=== PATIENT | female | born 1960 | race Caucasian/White ===

== ENCOUNTER 2016-09-10 20:34 | Emergency (ER) | payer OTHER ==
[~2016-09-10 20:34] MED LIST: ADVIL200 M1 PO; ASPIRIN81 M1 PO; ATORVASTATIN CA20 MG PO; CARDIZEM C2 PO; CARDIZEM LA360 MG PO; CEFUROXIME AXE250 MG PO; COUMADIN5 MG PO; FUROSEMIDE20 MG PO; LEVEMIR FL100 UNIT/M SC; LISINOPRIL10 MG PO; LOPRESSOR25 MG PO; LYRICA25 MG PO; MAGNESIUM400 M1 PO; NORCO1 TA1 PO; NOVOLOG PE100 UNITS/ SC; WARFARIN SODIUM5 MG PO
--- NOTE | 2016-09-10 22:18 | DIAGNOSTIC IMAGING REPORT ---
PROCEDURE: XR CHEST 2 VIEW INDICATION: SYNCOPE TECHNIQUE: PA and lateral views. COMPARISON: None. FINDINGS: Lungs are clear. Heart and mediastinum are normal. There are mild degenerative changes of the thoracic spine. IMPRESSION: 1. Negative chest.
--- NOTE | 2016-09-10 22:23 | DIAGNOSTIC IMAGING REPORT ---
PROCEDURE: CT HEAD WITHOUT CONTRAST INDICATION: FALL TECHNIQUE: Noncontrast axial images with sagittal and coronal reformations. COMPARISON: None. FINDINGS: There are a few areas of low density in the white matter of the cerebral hemispheres. Brain and ventricles are otherwise normal. No evidence of an acute process or hemorrhage. Sinuses and mastoids are normal. IMPRESSION: 1. There are a few areas of low density in the white matter. Findings suggest old small vessel disease (e.g., atherosclerosis, vasculitis). MRI brain without with contrast is recommended to further evaluate (after the patient's acute illness). 2. Otherwise negative head CT. No evidence of acute process. 3. Findings discussed with Dr. Sixto Corona at [address] scans at this facility use dose modulation, iterative reconstruction, and/or weight-based dosing when appropriate to reduce radiation dose to as low as reasonably achievable.
--- NOTE | 2016-09-11 00:45 | ED NURSING NOTES ---
Clinical Report - Nurses [facility] [address] [place] [address] 09/10/2016 20:34 Patient: YAMILETH MANUEL TRIAGE Triage time 20:36 Sep 10 2016. Acuity: LEVEL 2. Chief Complaint: (Syncope, UTI symtoms). ( FAST exam negative). SEPSIS SCREEN: Sepsis Screen: negative. Negative (no infection suspected/documented). JUANITA COMA SCORE: Juanita Coma Scale: 15- eyes open spontaneously (4); best verbal response- oriented x 4 (5); best motor response- obeys commands (6). --20:45 Carley Albert 20:36 09/10/16. BP: 103/65. HR: 70. RR: 20. O2 saturation: 100% on room air. Temp: unable to obtain. Pain level now: 0/10. Additional comments: Reading 90.0 F will reassess after patient is warmed . --20:45 Carley Albert. Weight: 91.6 kg stated. Height/Length: 66 inches Per Patient. BMI: 32.6. --20:42 Carley Albert. Medications Align Oral. Atorvastatin Calcium Oral 20 mg, at bedtime. --20:40 Carley Albert Diltiazem HCl Oral (Tablet 120 mg) 1 tablet, daily. Diltiazem HCl Oral 240 mg, daily. Levimir insulin 40 units at hs daily. Lisinopril Oral 10 mg, daily. Lyrica Oral (Capsule 75 mg) 1 capsule, BID. Magnesium Oral. NovoLOG Subcutaneous 15 units, before meals. Potassium Chloride ER Oral (Capsule Extended Release 10 meq) 1 capsule. Vitamin D Oral. --20:40 Carley Albert Warfarin Sodium Oral 7.5 mg, daily. --20:40 Carley Albert. Medication/allergy information source: the patient and EMS. --20:45 Carley Albert. Allergies Adhesive Tape. Fentanyl. --20:40 Carley Albert Bactrim. --20:40 Carley Albert Sulfa Antibiotics. --20:40 Carley Albert Vancomycin. --20:40 Carley Albert. History Arrived by EMS. Historian: patient. Unaccompanied. This started today. ( Patient states she has been feeling "unwell" since yesterday. She states today she felt worse, she states she thought her sugar was low, she went to the kitchen to get juice and doesn't remember anything after.). 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 EMS treatment BAND SCROLL SAW OPERATOR verbally communicated. BP: 120 / 100. HR: 70. O2 saturation: 98 % room air. ( Blood sugar 136 mg/dl). PAST MEDICAL HX: The patient has had a hysterectomy. SOCIAL HX: Never smoker. No alcohol use or drug use. No infectious disease exposure. ABUSE ASSESSMENT: No report of abuse. NUTRITIONAL RISK ASSESSMENT: The nutritional risk assessment revealed no deficiencies. FUNCTIONAL ASSESSMENT: Functional assessment: no impairments noted. LEARNING NEEDS ASSESSMENT: The learning needs assessment revealed no barriers. FALL RISK ASSESSMENT: Fall risk assessment completed. Risk factors identified include dizziness and patient medications and history of fall and fainting. Fall interventions initiated. Call light in reach of patient. Instructed not to get up without assistance. SKIN INTEGRITY ASSESSMENT: Skin integrity risk assessment completed. No skin integrity risk identified. --20:45 Carley Albert. PROBLEMS: Vomiting. Abdominal Pain. Infectious Mononucleosis. Gallstone(s). Abscess. MRSA Infection. Chronic Hepatitis (undifferentiated). Liver Disease. Atrial Fibrillation. Anemia. Diabetes Mellitus. --20:41 Carley Albert. ADDITIONAL SURGERIES: Gallbladder Surgery. Retro rectal tumor removal. --20:41 Carley Albert Lithotripsy. --20:45 Carley Albert. Interventions ID band on patient. To treatment room. --20:45 Carley Albert. PHYSICAL ASSESSMENT To room via stretcher. Patient gowned. GENERAL / NEURO / PSYCH: Alert. Oriented X 4. Appears anxious. HEENT: Pupils equal, round and reactive to light. No facial asymmetry noted. RESPIRATORY: Respirations not labored. CVS: Normal sinus rhythm noted. GI / : ( Patient reports pressure in her lower abdomen, states "its like I have to pee"). Abdomen soft and nontender. SKIN: Skin is diaphoretic. ( Skin is cool to the touch). --20:46 BetyIsra prietonah. NURSING PROGRESS NOTES child care centre director, pulse oximeter and NIBP monitor placed on patient; monitor alarms on. Patient gowned. Warming measures: blanket applied. Reassurance given to the patient. Two patient identifiers checked. Call light placed in reach. Side rails up x 1. Bed placed in lowest position. Brakes of bed on. Patient ready for evaluation- chart flagged. --20:47 BetyIsra prietonah 20:50 09/10/2016 Site #1 started via IV in the left antecubital space with an 20g angiocath, with aseptic technique and good blood return; one attempt. Blood drawn: rainbow set. Labeled in the presence of the patient and sent to the lab. Saline lock flushed with 10 mL saline. --20:50 Bety, Carley 20:57. EKG was performed by a tech and shown to the ED physician. --21:00 Celia Weber, ER Tech1 Telemetry strip posted to chart. --21:01 Celia Weber, ER Tech1 8 fr in/out catheterization. Reason for indwelling catheter: retention. During procedure hand hygiene observed and sterile equipment and aseptic technique used. Return of greater than 1000 mL yellow-colored cloudy urine. She tolerated procedure well. --21:26 BetyIsra prietonah 21:26 09/10/16. BP: 134/92. HR: 86. RR: 20. O2 saturation: 98% on room air. Temp: 97.7 F (oral). --21:26 BetyCarley prieto Patient transported to radiology and CT by stretcher with tech. (:Sep 10 2016). --22: BetyIsra prietonah Patient returned from radiology by stretcher with tech. (:Sep 10 2016). --22:02 BetyIsra prietonah 22:09/10/2016 Started bag #1 1000 mL IV Fluids IV D5W; at 1000 mL/hr over 1 hour(s) via site #1. Allergies verified and confirmed 5 rights. IV patency established. IV site checked: no pain, redness, or swelling. IV flushed thoroughly pre- and post-medication administration. --22:07 Carley Albert 22:07 09/10/16. BP: 135/100. HR: 83. RR: 20. O2 saturation: 95% on room air. --22:07 Carley Albert 22:36 09/10/16. BP: 159/87. HR: 78. RR: 20. O2 saturation: 100% on room air. --22:44 Carley Albert 22:52 09/10/2016 Started 1 gm of Ceftriaxone IVPB in bag #1 50 mL; at 150 mL/hr over 20 minute(s) via site #1 via IV pump. Allergies verified and confirmed 5 rights. IV patency established. IV site checked: no pain, redness, or swelling. IV flushed thoroughly pre- and post-medication administration. --23:02 Carley Albert ( Patient given PO fluids and blankets.). --23:02 Carley Albert 23:10 09/10/2016 Ceftriaxone IVPB Discontinued: bag #1 completed. Total amount infused: 50 mL. IV patency established. IV site checked: no pain, redness, or swelling. IV flushed thoroughly. --23:20 Carley Albert 23:56 09/10/2016 IV Fluids IV D5W Discontinued: bag #1 completed. Total amount infused: 1000 mL. IV patency established. IV site checked: no pain, redness, or swelling. IV flushed thoroughly. --23:56 aCrley Albert ( Patient able to tolerate only a few sips of fluids, states its not settling well.). --23:56 Carley Albert 23:56 09/10/16. BP: 182/91. HR: 76. RR: 20. O2 saturation: 98% on room air. --23:56 Carley Albert. DISPOSITION / DISCHARGE Condition at departure: stable. The goals identified in the patient's plan of care were met. No learning barriers present. Discharge instructions provided and reviewed with the patient and family. Reviewed medication(s) side effects, precautions, dosing and course information. Prescription(s) given to the patient. Reviewed diabetic diet. Patient and family verbalized understanding. Written instructions provided in Luxembourgish. ( Follow up with Dr Infante in three days. Return if symptoms worsen. Continue taking prescribed antibiotic for Urinary tract infection.). The patient was discharged by the physician. She was discharged home and accompanied by family. She left the Emergency Department ambulatory and via private vehicle. Family member driving. ( Patient assisted to restroom prior to discharge. Patient was steady on her feet and able to ambulate with the assistance of a walker, which she utilizes at home.). FALL RISK ASSESSMENT: Fall risk assessment completed. No fall risk identified. --01:10 Carley Albert 01:05 09/11/16. BP: 139/81. HR: 82. RR: 20. O2 saturation: 98% on room air. Temp: 97.6 F (oral). Pain level now: 0/10. --01:10 Carley Albert 01:01 09/11/2016 Site #1 removed upon discharge. Catheter intact. Bandaid applied. --01:11 Carley Albert. Locked/Released at 09/11/2016 1:12 by Carley Albert,
--- NOTE | 2016-09-11 00:45 | ED CLINICAL REPORT ---
Clinical Report - Physicians/Mid Levels [facility] [address] [place] [address] 09/10/2016 20:34 Patient: YAMILETH MANUEL Arrived- By private vehicle. Historian- patient. HISTORY OF PRESENT ILLNESS Chief Complaint: TWO SYNCOPAL EPISODES. Is no longer unconscious. She has recovered. This occurred today. It was abrupt in onset and has been intermittent. Patient was last known well (Several hours prior to arrival). Event was not witnessed. The event occurred during light exertion (walking). The patient felt faint. The patient had preceding symptoms of light-headedness. Experienced repeated episodes. The episode lasted minutes. No injuries noted. She currently has generalized weakness. Similar symptoms previously: None. Recent medical care: Not recently seen/assessed. REVIEW OF SYSTEMS No headache, chest pain, fever or skin rash. All systems otherwise negative, except as recorded above. PAST HISTORY See nurses notes. Medications: Warfarin Sodium Oral 7.5 mg, daily. Diltiazem HCl Oral (Tablet 120 mg) 1 tablet, daily. Diltiazem HCl Oral 240 mg, daily. Levimir insulin 40 units at hs daily. Lisinopril Oral 10 mg, daily. Lyrica Oral (Capsule 75 mg) 1 capsule, BID. Magnesium Oral. NovoLOG Subcutaneous 15 units, before meals. Potassium Chloride ER Oral (Capsule Extended Release 10 meq) 1 capsule. Vitamin D Oral. Align Oral. Atorvastatin Calcium Oral 20 mg, at bedtime. Allergies: Adhesive Tape. Bactrim. Fentanyl. Sulfa Antibiotics. Vancomycin. SOCIAL HISTORY Never smoker. No alcohol use or drug use. No recent travel. Is a local resident. FAMILY HISTORY Negative. ADDITIONAL NOTES The nursing notes have been reviewed. PHYSICAL EXAM Vital Signs: 09/10/2016 20:36 BP: 103/65. HR: 70. RR: 20. O2 saturation: 100%. Pain level now: 0/10. Blood pressure normal. Oxygen saturation normal. Appearance: Alert. No acute distress. Eyes: Pupils equal, round and reactive to light. No nystagmus. Extraocular movements normal. ENT: Normal ENT inspection. TM's normal. Moist mucous membranes. Pharynx normal. Neck: Normal inspection. Neck supple. CVS: Normal heart rate and rhythm. Heart sounds normal. Pulses normal. Respiratory: No respiratory distress. Breath sounds normal. Abdomen: Soft and nontender. No organomegaly. Back: Normal inspection. Skin: Skin warm and dry. Normal skin color. No rash. Normal skin turgor. Extremities: Extremities exhibit normal ROM. No lower extremity edema. Neuro: Alert. Oriented X 3. Mood/affect normal. Speech normal. Cranial nerves normal (as tested). No motor deficit. No sensory deficit. Reflexes normal. LABS, X-RAYS, AND EKG EKG: Atrial fibrillation (narrow-complex) (76). Normal QRS complex. Normal axis. Normal ST and T waves. Prolonged QTc (492). Changes present when compared to prior EKG. (improved from September 01, 2015). The study has been interpreted contemporaneously. The study has been independently viewed by me. The EKG appears to be a good tracing. Chest X-ray: No acute disease. Normal lung markings present. Normal heart size. No infiltrate. Views: PA and lateral. The X-rays were independently viewed by me, interpreted by the radiologist and discussed with the radiologist. CT Head: (Chronic microvascular changes. No acute findings.). The study was independently viewed by me and interpreted by the radiologist. The study was discussed with the radiologist (Via phone and pacs). Laboratory Tests: UA-Culture if indicated: (CALLIE: 09/10/2016 21:20) ( MsgRcvd 09/10/2016 21:43) Final results Test Result Flag Units (Reference) URINE COLOR YELLOW URINE APPEARANCE CLOUDY URINE GLUCOSE NEGATIVE (NEGATIVE) URINE BILIRUBIN NEGATIVE (NEGATIVE) URINE KETONE NEGATIVE (NEGATIVE) URINE SPECIFIC GRAVITY 1.015 (1.010-1.030) URINE PH 5.5 (5.0-8.0) URINE PROTEIN TRACE (NEGATIVE) URINE UROBILINOGEN 0.2 EU/dL (0.2-1.0) URINE NITRITE NEGATIVE (NEGATIVE) URINE BLOOD 2+ (NEGATIVE) URINE LEUK ESTERASE POSITIVE (NEGATIVE) URINE RBC NONE SEEN rbc/hpf (0-1) URINE WBC >100 wbc/hpf (0-1) URINE EPITHELIAL CELLS RARE EPI/hpf (0-5) URINE BACTERIA FEW (1+) (NONE SEEN) URINE COMMENT CULTURE INDICATED URINE CULTURES ARE SET-UP BASED ON THE FOLLOWING CRITERIA:POSITIVE NITRITEPOSITIVE LEUKOCYTE ESTERASEGREATER THAN 10 WHITE BLOOD CELLSMODERATE (2+) OR GREATER BACTERIA CBC w Diff: (CALLIE: 09/10/2016 20:56) ( [facility] 09/10/2016 21:03) Final results Test Result Flag Units (Reference) WHITE BLOOD COUNT 9.4 K/uL (4.5-11.5) RED BLOOD COUNT 5.10 M/uL (4.00-5.20) HEMOGLOBIN 13.6 gm/dL (12.0-16.0) HEMATOCRIT 40.9 % (36.0-46.0) MEAN CELL VOLUME 80 fL (80-100) MEAN CORPUSCULAR HGB 27 pg (26-34) MEAN CORPUSCULAR HGB CONC 33 g/dL (31-37) RED CELL DISTRIBUTION WIDTH 17.2 H % (11.6-14.8) PLATELET COUNT 420 H K/uL (150-400) NEUTROPHIL % 81.8 H % (50-75) LYMPH % 13.3 L % (25-40) MONO % 2.9 L % (3-14) EOSINOPHIL % 1.3 % (0-4) BASOPHIL % 0.7 % (0-2) PT with INR: (CALLIE: 09/10/2016 20:58) ( [facility] 09/10/2016 21:38) Final results Test Result Flag Units (Reference) INR 2.7 H (0.8-1.2) Low Intensity Therapy: INR 1.5-2.0 PT range 18.5-23.1Mod.Intensity Therapy: INR 2.0-3.0 PT range 23.1-31.5High Intensity Therapy: INR 2.5-3.5 PT range 27.4-35.5High Intensity Therapy 2: INR 3.0-4.0 PT range 31.5-39.3 Troponin-I: (CALLIE: 09/10/2016 20:56) ( [facility] 09/10/2016 21:38) Final results Test Result Flag Units (Reference) TROPONIN I <0.05 L ng/mL (0.00-1.5) TROPONIN REFERENCE RANGE:<0.1 NEGATIVE0.1-1.5 INDETERMINANT>1.5 POSITIVE CMP: (CALLIE: 09/10/2016 20:56) ( MsgRcvd 09/10/2016 21:16) Final results Test Result Flag Units (Reference) GLUCOSE 105 mg/dL (70-110) BUN 44 H mg/dL (7-18) CREATININE 1.7 H mg/dL (0.6-1.3) Estimated GFR 33.04 mL/min Estimated GFR- 40.05 mL/min Note: Persistent reduction over 3 months in eGFR<60 mL/min/1.73 m2 defines CKD. Patients with eGFR values>=60 mL/min/1.73 m2 may also have CKD if evidence ofpersistent proteinuria. Additional information may be foundat www.kidney.org. SODIUM 134 L mmol/L (136-145) POTASSIUM 3.7 mmol/L (3.5-5.1) CHLORIDE 97 L mmol/L (98-107) CARBON DIOXIDE 27 mmol/L (21-32) CALCIUM 9.2 mg/dL (8.5-10.1) TOTAL PROTEIN 8.9 H g/dL (6.4-8.2) ALBUMIN 3.2 L g/dL (3.3-5.0) BILIRUBIN, TOTAL 0.4 mg/dL (0.0-1.0) ALKALINE PHOSPHATASE 548 H U/L (46-116) AST (SGOT) 26 U/L (15-37) ALT (SGPT) 37 U/L (12-78) . PROGRESS AND PROCEDURES Course of Care: the patient is a pleasant 55 her old female with past medical history significant for atrial fibrillation, diabetes, and hypertension presenting for evaluation of syncope. The patient reports that she would want to her doctor's office earlier today and while at home collapsed. Patient reports that she had taken her blood sugar prior topassing out and was noted to be in the low 60s. Patient states that she had awoken briefly and checked her sugar again and was in the 50s. Patient presents she had passed out again. Patient patient history, likely due to hypoglycemia. We'll evaluate for other causes of the syncopal event. EKG was ordered and compared to prior EKG. No acute changes noted except for improved rate control. Patient is not having other symptoms at this time. No chest pain, shortness of breath or other more sinister symptoms at this time. Patient is agreeable to the treatment plan. Family is at bedside is agreeable as well. Workup does not show any acute abnormalities except for urinary tract infection. Ceftriaxone is given. Per nursing staff, patient recently had her antibiotic changed. Because of this, we will have the patient continue with her new antibiotic and follow up with her primary care doctor. Patient's blood sugar has been normal here in the emergency department. Patient is tolerating by mouth. The signs of hypoglycemia. patient is reliable and can have family member check on patient. Did not feel patient needs to be admitted the hospital or require further emergency department evaluation and workup. Vital signs in the emergency Department unremarkable. Discussed with family workup, diagnosis, home care, follow-up, and return precautions. All questions answered. The patient and family expressed understanding of these instructions and was agreeable to them. of note, family and patient updated on the results of CT scan of the head. Recommended follow-up with primary care doctor. Patient is not having symptoms of stroke. No acute findings. Likely microvascular changes. Disposition: Discharged. Condition: good. CLINICAL IMPRESSION Syncope of unknown cause .12 lead EKG performed. 09/10/2016 23:56 BP: 182/91. HR: 76. RR: 20. O2 saturation: 98%. Mild nausea. No vomiting. Blood pressure normal. Oxygen saturation normal. Hypoglycemia- associated with type 2 diabetes (acute). Moderate dehydration Acute urinary tract infection with hematuria. chronic kidney disease. INSTRUCTIONS Warnings: GENERAL WARNINGS: Return or contact your physician immediately if your condition worsens or changes unexpectedly, if not improving as expected, or if other problems arise. SPECIFICALLY, return if you develop chest pain, fluttering sensation in your chest, lightheadedness, fainting, numbness, weakness or extreme fatigue. Your Current Medications: CONTINUE TAKING THE FOLLOWING MEDICATIONS: Align Oral. Atorvastatin Calcium Oral : 20 mg at bedtime. Diltiazem HCl Oral : Tablet 120 mg, 1 tablet daily. Diltiazem HCl Oral : 240 mg daily. Levimir insulin* : 40 units at hs daily. Lisinopril Oral : 10 mg daily. Lyrica Oral : Capsule 75 mg, 1 capsule BID. Magnesium Oral. NovoLOG Subcutaneous : 15 units before meals. Potassium Chloride ER Oral : Capsule Extended Release 10 meq, 1 capsule. Vitamin D Oral. Warfarin Sodium Oral : 7.5 mg daily. Prescription Medications: Compazine 10 mg tablets: take 1 orally every 8 hours as needed for nausea or vomiting. Dispense twenty (20). No refills. Substitution is permissible Follow-up: Return to the emergency department as needed. Follow up with your doctor in three days. Reason for referral: recheck today's concerns. Summary of care provided to patient via paper. Screening today revealed the patient's blood pressure to be in the hypertensive range. The patient should follow up with a primary care provider for blood pressure management. Understanding of the discharge instructions verbalized by patient. (Electronically signed by Sixto Corona Dr. 09/11/2016 10:08)
--- NOTE | 2016-09-11 00:46 | ED ORDER SUMMARY ---
..... Patient: YAMILETH MANUEL OrderSheet [facility] VisitID: [id number] [place] [address] 55y, F Registration Date/Time: 09/10/2016 ORDER SHEET Weight: 91.6 kg (stated) Allergies: Adhesive Tape, Fentanyl, Bactrim, Sulfa Antibiotics, Vancomycin GENERAL ORDERS: Senior Controls Technician (Continuous) (20:49 09/10/2016 HSoule per protocol) (20:50 HSoule) CBC w Diff Urgent (20:50 09/10/2016 HSoule per protocol) (Ack 20:55 NHouse ER Tech1) (21:28 NHouse ER Tech1) CMP Urgent (20:50 09/10/2016 HSoule per protocol) (Ack 20:55 NHouse ER Tech1) (21:28 NHouse ER Tech1) UA-Culture if indicated Urgent (20:50 09/10/2016 HSoule per protocol) (Ack 20:55 NHouse ER Tech1) (21:54 NHouse ER Tech1) EKG - ER Stat (20:50 09/10/2016 HSoule per protocol) (Ack 20:51 AMcQuoid ER Tech1) (21:00 AMcQuoid ER Tech1) Chest 2V Urgent (21:09 09/10/2016 Allyson Menjivar) (Ack 21:20 NHouse ER Tech1) (21:53 NHouse ER Tech1) Troponin-I Urgent (21:09 09/10/2016 Allyson Menjivar) (Ack 21:20 NHouse ER Tech1) (21:28 NHouse ER Tech1) Vitals - Orthostatic (21:09 09/10/2016 Allyson Menjivar) (Ack 22:02 HSoule) (Cancelled: Patient Refusal1:11 HSoule) CT Head wo Cont Urgent (21:26 09/10/2016 Allyson Menjivar) (Ack 21:27 NHouse ER Tech1) (22:09 NHouse ER Tech1) PT with INR Urgent (21:26 09/10/2016 Allyson Menjivar) (Ack 21:27 NHouse ER Tech1) (21:28 NHouse ER Tech1) - (PO chall) (22:50 09/10/2016 Allyson Menjivar) (23:01 HSoule) MEDICATION ORDERS: IV FLUIDS: IV Saline Lock (20:50 09/10/2016 HSoule per protocol) (20:50 HSoule) Zofran IV 4 mg (NOW) (21:30 09/10/2016 Allyson Menjivar) (Ack 21:36 HSoule) (Cancelled: Patient Eyukuuq30:06 HSoule) IV D5W : initial bolus 100 mL (1000 mL/hr), then none - for X1 (NOW) (21:31 09/10/2016 Allyson Menjivar) (Ack 21:36 HSoule) (22:07 HSoule) Ceftriaxone IV 1 gm/50mL (NOW) (22:47 09/10/2016 Allyson Menjivar) (23:02 HSoule) ORDER SHEET NOTES: [Electronically signed by Carley Albert (01:12 09/11/2016)] [Electronically signed by Sixto Corona Dr. (10:08 09/11/2016)] [Electronically locked/signed by Carley Albert (01:12 09/11/2016)]
--- NOTE | 2016-09-11 00:46 | ED ORDER SUMMARY ---
..... Patient: YAMILETH MANUEL OrderSheet Formerly [facility] VisitID: [id number] [place] [address] 55y, F Registration Date/Time: 09/10/2016 ORDER SHEET Weight: 91.6 kg (stated) Allergies: Adhesive Tape, Fentanyl, Bactrim, Sulfa Antibiotics, Vancomycin GENERAL ORDERS: Folder And Notcher (Continuous) (20:49 09/10/2016 HSoule per protocol) (20:50 HSoule) CBC w Diff Urgent (20:50 09/10/2016 HSoule per protocol) (Ack 20:55 NHouse ER Tech1) (21:28 NHouse ER Tech1) CMP Urgent (20:50 09/10/2016 HSoule per protocol) (Ack 20:55 NHouse ER Tech1) (21:28 NHouse ER Tech1) UA-Culture if indicated Urgent (20:50 09/10/2016 HSoule per protocol) (Ack 20:55 NHouse ER Tech1) (21:54 NHouse ER Tech1) EKG - ER Stat (20:50 09/10/2016 HSoule per protocol) (Ack 20:51 AMcQuoid ER Tech1) (21:00 AMcQuoid ER Tech1) Chest 2V Urgent (21:09 09/10/2016 Allyson Menjivar) (Ack 21:20 NHouse ER Tech1) (21:53 NHouse ER Tech1) Troponin-I Urgent (21:09 09/10/2016 Allyson Menjivar) (Ack 21:20 NHouse ER Tech1) (21:28 NHouse ER Tech1) Vitals - Orthostatic (21:09 09/10/2016 Allyson Menjivar) (Ack 22:02 HSoule) (Cancelled: Patient Refusal1:11 HSoule) CT Head wo Cont Urgent (21:26 09/10/2016 Allyosn Menjivar) (Ack 21:27 NHouse ER Tech1) (22:09 NHouse ER Tech1) PT with INR Urgent (21:26 09/10/2016 Allyson Menjivar) (Ack 21:27 NHouse ER Tech1) (21:28 NHouse ER Tech1) - (PO chall) (22:50 09/10/2016 Allyson Menjivar) (23:01 HSoule) MEDICATION ORDERS: IV FLUIDS: IV Saline Lock (20:50 09/10/2016 HSoule per protocol) (20:50 HSoule) Zofran IV 4 mg (NOW) (21:30 09/10/2016 Allyson Menjivar) (Ack 21:36 HSoule) (Cancelled: Patient Xgrqnvu09:06 HSoule) IV D5W : initial bolus 100 mL (1000 mL/hr), then none - for X1 (NOW) (21:31 09/10/2016 Allyson Menjivar) (Ack 21:36 HSoule) (22:07 HSoule) Ceftriaxone IV 1 gm/50mL (NOW) (22:47 09/10/2016 Allyson Menjivar) (23:02 HSoule) ORDER SHEET NOTES: [Electronically signed by Carley Albert (01:12 09/11/2016)] [Electronically signed by Sixto Corona Dr. (10:08 09/11/2016)] [Electronically locked/signed by Carley Albert (01:12 09/11/2016)]
--- NOTE | 2016-09-11 10:08 | ED MED RECONCILIATION SUMMARY ---
Patient: YAMILETH MANUEL Medication Reconciliation Report [facility] VisitID: [id number] [place] [address] 55y, F Registration Date/Time: 09/10/2016 Weight: 91.6 kg Height/Length: 66 in. BMI: 32.6 ALLERGIES: Adhesive Tape, Bactrim, Fentanyl, Sulfa Antibiotics, Vancomycin The patient's Home Medications are listed below: CONTINUE TAKING THE FOLLOWING MEDICATIONS: Align Oral Atorvastatin Calcium Oral 20 mg, at bedtime Diltiazem HCl Oral (120 mg) 1 tablet, daily Diltiazem HCl Oral 240 mg, daily Levimir insulin 40 units at hs daily Lisinopril Oral 10 mg, daily Lyrica Oral (75 mg) 1 capsule, BID Magnesium Oral NovoLOG Subcutaneous 15 units, before meals Potassium Chloride ER Oral (10 meq) 1 capsule Vitamin D Oral Warfarin Sodium Oral 7.5 mg, daily The source(s) of the original Home Medication information: patient EMS The following Medications were given to the patient in the Emergency Department: IV D5W IV Fluids bolus 0, then 1000 mL/hr, administered: 09/10/2016 10:07:00 PM Ceftriaxone [IVPB] IVPB bolus 0, then 1 gm 150 mL/hr, administered: 09/10/2016 10:52:00 PM The following Medications were prescribed to the patient: Compazine 10 mg tablets: take 1 orally every 8 hours as needed for nausea or vomiting. Dispense twenty (20). No refills. Substitution is permissible -- Sixto Corona Dr.
--- NOTE | 2016-09-11 10:08 | ED MED RECONCILIATION SUMMARY ---
Patient: YAMILETH MANUEL Medication Reconciliation Report [facility] VisitID: [id number] [place] [address] 55y, F Registration Date/Time: 09/10/2016 Weight: 91.6 kg Height/Length: 66 in. BMI: 32.6 ALLERGIES: Adhesive Tape, Bactrim, Fentanyl, Sulfa Antibiotics, Vancomycin The patient's Home Medications are listed below: CONTINUE TAKING THE FOLLOWING MEDICATIONS: Align Oral Atorvastatin Calcium Oral 20 mg, at bedtime Diltiazem HCl Oral (120 mg) 1 tablet, daily Diltiazem HCl Oral 240 mg, daily Levimir insulin 40 units at hs daily Lisinopril Oral 10 mg, daily Lyrica Oral (75 mg) 1 capsule, BID Magnesium Oral NovoLOG Subcutaneous 15 units, before meals Potassium Chloride ER Oral (10 meq) 1 capsule Vitamin D Oral Warfarin Sodium Oral 7.5 mg, daily The source(s) of the original Home Medication information: patient EMS The following Medications were given to the patient in the Emergency Department: IV D5W IV Fluids bolus 0, then 1000 mL/hr, administered: 09/10/2016 10:07:00 PM Ceftriaxone [IVPB] IVPB bolus 0, then 1 gm 150 mL/hr, administered: 09/10/2016 10:52:00 PM The following Medications were prescribed to the patient: Compazine 10 mg tablets: take 1 orally every 8 hours as needed for nausea or vomiting. Dispense twenty (20). No refills. Substitution is permissible -- Sixto Corona Dr.
--- NOTE | 2016-09-11 10:08 | ED MAR SUMMARY ---
..... Medication Administration Record [facility] [address] [place] [address] Patient: YAMILETH MANUEL Visit ID: [id number] 55y, F Weight: 91.6 kg Height/Length: 66 in BMI: 32.6 ALLERGIES: Vancomycin, Sulfa Antibiotics, Bactrim, Adhesive Tape, Fentanyl Start 22:07 09/10/2016 Carley Albert,, Stop 23:56 09/10/2016 Carley Albert, Medication Administered: IV D5W, Dose: IV Fluids over 1 hour(s), Rate: 1000 mL/hr, Dispensed: 1000 mL bag, Site: #1 left AC. Medication Ordered: IV D5W : initial bolus 100 mL (1000 mL/hr), then none - for X1 (NOW). Start 22:52 09/10/2016 Carley Albert,, Stop 23:10 09/10/2016 Carley Albert, Medication Administered: CEFTRIAXONE [IVPB], Dose: 1 gm IVPB over 20 minute(s), Rate: 150 mL/hr, Dispensed: 50 mL bag, Site: #1 left AC. Medication Ordered: Ceftriaxone IV 1 gm/50mL (NOW).
--- NOTE | 2016-09-11 10:08 | ED MAR SUMMARY ---
..... Medication Administration Record [facility] [address] [place] [address] Patient: YAMILETH MANUEL Visit ID: [id number] 55y, F Weight: 91.6 kg Height/Length: 66 in BMI: 32.6 ALLERGIES: Vancomycin, Sulfa Antibiotics, Bactrim, Adhesive Tape, Fentanyl Start 22:07 09/10/2016 Carley Albert,, Stop 23:56 09/10/2016 Carley Albert, Medication Administered: IV D5W, Dose: IV Fluids over 1 hour(s), Rate: 1000 mL/hr, Dispensed: 1000 mL bag, Site: #1 left AC. Medication Ordered: IV D5W : initial bolus 100 mL (1000 mL/hr), then none - for X1 (NOW). Start 22:52 09/10/2016 Carley Albert,, Stop 23:10 09/10/2016 Carley Albert, Medication Administered: CEFTRIAXONE [IVPB], Dose: 1 gm IVPB over 20 minute(s), Rate: 150 mL/hr, Dispensed: 50 mL bag, Site: #1 left AC. Medication Ordered: Ceftriaxone IV 1 gm/50mL (NOW).
--- NOTE | 2016-09-11 10:08 | ED DISCHARGE INSTRUCTIONS ---
Patient: YAMILETH MANUEL General Instructions [facility] VisitID: [id number] [place] [address] 55y, F Registration Date/Time: 09/10/2016 Syncope of unknown cause .12 lead EKG performed. 09/10/2016 23:56 BP: 182/91. HR: 76. RR: 20. O2 saturation: 98%. Mild nausea. No vomiting. Blood pressure normal. Oxygen saturation normal. Hypoglycemia- associated with type 2 diabetes (acute). Moderate dehydration Acute urinary tract infection with hematuria. chronic kidney disease. INSTRUCTIONS Warnings: GENERAL WARNINGS: Return or contact your physician immediately if your condition worsens or changes unexpectedly, if not improving as expected, or if other problems arise. SPECIFICALLY, return if you develop chest pain, fluttering sensation in your chest, lightheadedness, fainting, numbness, weakness or extreme fatigue. Your Current Medications: CONTINUE TAKING THE FOLLOWING MEDICATIONS: Align Oral. Atorvastatin Calcium Oral : 20 mg at bedtime. Diltiazem HCl Oral : Tablet 120 mg, 1 tablet daily. Diltiazem HCl Oral : 240 mg daily. Levimir insulin* : 40 units at hs daily. Lisinopril Oral : 10 mg daily. Lyrica Oral : Capsule 75 mg, 1 capsule BID. Magnesium Oral. NovoLOG Subcutaneous : 15 units before meals. Potassium Chloride ER Oral : Capsule Extended Release 10 meq, 1 capsule. Vitamin D Oral. Warfarin Sodium Oral : 7.5 mg daily. Prescription Medications: Compazine 10 mg tablets: take 1 orally every 8 hours as needed for nausea or vomiting. Dispense twenty (20). No refills. Substitution is permissible Follow-up: Return to the emergency department as needed. Follow up with your doctor in three days. Reason for referral: recheck today's concerns. Summary of care provided to patient via paper. Screening today revealed the patient's blood pressure to be in the hypertensive range. The patient should follow up with a primary care provider for blood pressure management. Understanding of the discharge instructions verbalized by patient. ADDITIONAL INFORMATION Fainting:Uncertain Cause Fainting (syncope) is a temporary loss of consciousness ("passing out"). It occurs when blood flow to the brain is reduced. Near-fainting ("near-syncope") is very similar to fainting, but you do not fully "pass out". The common minor causes of fainting include: sudden fear, pain, nausea, emotional stress and overexertion. Suddenly standing up after sitting or lying for a long time can also cause fainting. The more serious causes for fainting are due to either a very slow or very fast or very slow heart beat ("arrhythmia"), other types of heart disease, dehydration, blood loss, seizure, stroke or ruptured blood vessel in the brain. Taking too much high blood pressure medicine can also cause low blood pressure and fainting. The exact cause of your episode is not certain. However, the tests today did not show any of the serious causes of fainting. Sometimes further testing is needed to find out if a serious problem exists. Therefore, it is important that you follow-up with your doctor as advised. Home Care: 1) Rest today. You may resume your normal activities when you are feeling back to normal. It is best to remain with someone who can check on you for the next 24 hours to watch for another episode of fainting. 2) If you become light-headed or dizzy, lie down immediately or sit with your head between your knees. 3) Because we do not know the exact cause of your near fainting spell, it is possible for another spell to occur without warning. Therefore, do not drive a car or operate dangerous equipment, do not take a bath alone (use a shower instead) and do not swim alone until your doctor says that you are no longer in danger of having another fainting spell. Follow Up with your doctor as advised. Get Prompt Medical Attention if any of the following occur: -- Another fainting spell occurs, which is not explained by the common causes listed above -- Chest, arm, neck, jaw, back or abdominal pain -- Shortness of breath -- Severe headache or seizure -- Blood in vomit, stools (black or red color) -- Unexpected vaginal bleeding -- Palpitations (very rapid or very slow or irregular heart beat) -- Signs of stroke: Weakness of an arm or leg or one side of the face Difficulty with speech or vision Extreme drowsiness, confusion, dizziness or fainting Insulin Reaction (Low Blood Sugar) You have been treated for an insulin reaction today. This occurs when insulin causes your blood sugar to gotoo low(hypoglycemia). It may happen if you take too much insulin. It can also occur from taking your usual amount of insulin, but not eating enough food due to vomiting or loss of appetite. Other causes include heavy exercise, strong emotions, missing meals, and alcohol use. Some people are sensitive to the following, which can also lower blood sugar: tobacco, caffeine and certain medicines [aspirin, Haldol (haloperidol), Darvon or Darvocet (propoxyphene), Thorazine (chlorpromazine), Inderal (propranolol), Norpace (disopyramide)]. If you suspect any of these may be affecting you, stop smoking, switch to decaf coffee, and avoid teas and christie that contain caffeine. If you are taking any of the listed medicines, talk to your doctor about switching to another type. A class of medicine called beta blockers is used for high blood pressure, rapid heart rates and other conditions. Beta blockers may prevent the early symptoms of low blood sugar. In that case, you would not know that you were having a reaction until your blood sugar becomes dangerously low. If you are taking a beta roseanne, talk to your doctor about switching to a different class. The beta roseanne class includes Inderal (propranolol), Tenormin (atenolol), Lopressor (metoprolol), Corgard (nadolol), Trandateand Normodyne (labetalol) and Coreg (carvedilol). Home Care: During the next 24 hours rest and eat frequent small meals to avoid recurrence of low blood sugar. Learn the warning signals your body gives as your blood sugar starts to drop. See below. Always carry a source of fast-acting sugar with you in case you get symptoms of low blood sugar again. At the first sign of low blood sugar, eat or drink 15 to 20 grams of fast-acting sugar to raise your blood sugar. Examples include: 3 to 4 glucose tablets (found at most drugstores) 4 ounces (1/2 cup) of non-diet cola drinks (Coke, Pepsi, root beer, etc.) 4 ounces (1/2 cup) of fruit juice 2 tablespoons of raisins 1 tablespoon of honey Check your blood sugar 15 minutes after treating yourself. If it is still low, take another 15 to 20 grams of fast-acting sugar. Test again in 15 minutes. If its still low, go to an emergency room. Once your blood sugar returns to normal, eat a snack or meal to keep your blood sugar in a safe range. In the future, if you are not able to eat your normal amount at each meal due to illness or vomiting, you MUST reduce your insulin dose. Contact your doctor to ask for a temporary adjustment of your dose. If you cannot eat, and there is a delay in reaching your doctor, reduce your daily insulin dose to one-half of what you usually take. Check your blood sugar every 4-6 hours. Do this until you are able to begin eating normal amounts again. Wear a medical alert bracelet or carry a card in your wallet explaining that you are diabetic. In the event that you have a severe hypoglycemic reaction and are unable to give this information, it will help medical personnel provide proper care. Follow Up: Check and write down your blood sugar and insulin dose twice a daybefore breakfast and before dinner. Do this for the next 5 days. See your doctor during the next week to review these records. This will help determine if you need to adjust your insulin dose. For more information about diabetes, contact the [place] [employer]. www.diabetes.org or 929-612-8725. Get Prompt Medical Attention if any of the following occur: HIGH BLOOD SUGAR: frequent urination, dizziness, drowsiness, thirst, headache, nausea or vomiting, abdominal pain, vision changes, fast breathing, confusion or loss of consciousness LOW BLOOD SUGAR: fatigue, headache, shakes, excess sweating, hunger, feeling anxious or restless, vision changes, drowsiness, weakness, confusion, or loss of consciousness Dehydration (Adult) Dehydration occurs when your body loses too much fluid. This may be the result of vomiting a lot or from diarrhea,sweating a lot, or a high fever. It may also happen if you dont drink enough fluid when youre sick. Misuse of diuretics (water pills) can also be a cause. Symptoms include thirst and feeling dizzy, weak, fatigued, or very drowsy. The diet described below is usually enough to treat most cases. Sometimes you may needmedicine. Home Care Follow these guidelines for home care: Drink at least 12 8-ounce glasses of fluid every day to overcome the dehydration. Fluid may include water; orange juice; lemonade; apple, grape, and cranberry juice; clear fruit drinks; electrolyte replacement and sports drinks; and teas and coffee without caffeine. If you have been diagnosed with a kidney disease, ask your doctor how much and what types of fluids you should drink to prevent dehydration. If you have kidney disease, drinking too much fluid can cause it build up in the your body and be dangerous to your health. If you have fever, muscle aching, or headache from a viral syndrome, you may useacetaminophen or ibuprofen, unless another medicine was prescribed for this.If you have chronic liver or kidney disease or ever had a stomach ulcer or GI bleeding, talk with your doctor before using these medicines. Don't take aspirin if you are younger than 18 and are ill with a fever.Aspirin raises the chance forsevere liver injury. Follow-up care Follow up with your health care provider if you don't get better in the next 24 to 48 hours. When to seek medical care Get prompt medical attention if any of theseoccur: Continued vomiting (cant keep liquids down) Frequent diarrhea (more than 5 times a day); blood (red or black color) or mucus in diarrhea Blood in vomit or stool Swollen abdomen or increasing abdominal pain Weakness, dizziness, or fainting Unusually drowsy or confused Reduced urine output or extreme thirst Fever of 100.4 F (38 C) oral or higher that does not get better with fever medication Bladder Infection,Female (Adult) A bladder infection ("cystitis" or "UTI") usually causes a constant urge to urinate and a burning when passing urine. Urine may be cloudy, smelly or dark. There may be pain in the lower abdomen. A bladder infection occurs when bacteria from the vaginal area enter the bladder opening (urethra). This can occur from sexual intercourse, wearing tight clothing, dehydration and other factors. Home Care: Drink lots of fluids (at least 6-8 glasses a day, unless you must restrict fluids for other medical reasons). This will force the medicine into your urinary system and flush the bacteria out of your body. Avoid sexual intercourse until your symptoms are gone. Avoid caffeine, alcohol and spicy foods. These can irritate the bladder. A bladder infection is treated with antibiotics. You may also be given Pyridium (generic = phenazopyridine) to reduce the burning sensation. This medicine will cause your urine to become a bright orange color. The orange urine may stain clothing. You may wear a pad or panty-liner to protect clothing. Preventing Future Infections: Always wipe from front to back after a bowel movement. Keep the genital area clean and dry. Drink plenty of fluids each day to avoid dehydration. Both sexual partners should wash before intercourse. Urinate right after intercourse to flush out the bladder. Wear cotton underwear and cotton-lined panty hose; avoid tight-fitting pants. If you are on control pills and are having frequent bladder infections, discuss with your doctor. Follow Up: Return to this facility or see your doctor if ALL symptoms are not gone after three days of treatment. Get Prompt Medical Attention if any of the following occur: Fever of 100.4F (38C) or higher, or as directed by your healthcare provider No improvement by the third day of treatment Increasing back or abdominal pain Repeated vomiting; unable to keep medicine down Weakness, dizziness or fainting Vaginal discharge Pain, redness or swelling in the labia (outer vaginal area) Prochlorperazine Maleate Oral tablet What is this medicine? PROCHLORPERAZINE (proe klor PER a nelly) helps to control severe nausea and vomiting. This medicine is also used to treat schizophrenia. It can also help patients who experience anxiety that is not due to psychological illness. How should I use this medicine? Take this medicine by mouth with a glass of water. Follow the directions on the prescription label. Take your doses at regular intervals. Do not take your medicine more often than directed. Do not stop taking this medicine suddenly. This can cause nausea, vomiting, and dizziness. Ask your doctor or health urgent care physician assistant for advice. Talk to your bottle dealer regarding the use of this medicine in children. Special care may be needed. While this drug may be prescribed for children as young as 2 years for selected conditions, precautions do apply. What side effects may I notice from receiving this medicine? Side effects that you should report to your doctor or health urgent care physician assistant as soon as possible: blurred vision breast enlargement in men or women breast milk in women who are not breast-feeding chest pain, fast or irregular heartbeat confusion, restlessness dark yellow or brown urine difficulty breathing or swallowing dizziness or fainting spells drooling, shaking, movement difficulty (shuffling walk) or rigidity fever, chills, sore throat involuntary or uncontrollable movements of the eyes, mouth, head, arms, and legs seizures stomach area pain unusually weak or tired unusual bleeding or bruising yellowing of skin or eyes Side effects that usually do not require medical attention (report to your doctor or health urgent care physician assistant if they continue or are bothersome): difficulty passing urine difficulty sleeping headache sexual dysfunction skin rash, or itching What may interact with this medicine? Do not take this medicine with any of the following medications: amoxapine antidepressants like citalopram, escitalopram, fluoxetine, paroxetine, and sertraline deferoxamine dofetilide maprotiline tricyclic antidepressants like amitriptyline, clomipramine, imipramine, nortiptyline and others This medicine may also interact with the following medications: lithium medicines for pain phenytoin propranolol warfarin What if I miss a dose? If you miss a dose, take it as soon as you can. If it is almost time for your next dose, take only that dose. Do not take double or extra doses. Where should I keep my medicine? Keep out of the reach of children. Store at room temperature between 15 and 30 degrees C (59 and 86 degrees F). Protect from light. Throw away any unused medicine after the expiration date. What should I tell my health care provider before I take this medicine? They need to know if you have any of these conditions: blood disorders or disease dementia liver disease or jaundice Parkinson's disease uncontrollable movement disorder an unusual or allergic reaction to prochlorperazine, other medicines, foods, dyes, or preservatives or trying to get breast-feeding What should I watch for while using this medicine? Visit your doctor or health urgent care physician assistant for regular checks on your progress. You may get drowsy or dizzy. Do not drive, use machinery, or do anything that needs mental alertness until you know how this medicine affects you. Do not stand or sit up quickly, especially if you are an older patient. This reduces the risk of dizzy or fainting spells. Alcohol may interfere with the effect of this medicine. Avoid alcoholic drinks. This medicine can reduce the response of your body to heat or cold. Dress railroad car inspector cold weather and stay hydrated in hot weather. If possible, avoid extreme temperatures like saunas, hot tubs, very hot or cold showers, or activities that can cause dehydration such as vigorous exercise. This medicine can make you more sensitive to the sun. Keep out of the sun. If you cannot avoid being in the sun, wear protective clothing and use sunscreen. Do not use sun lamps or tanning beds/booths. Your mouth may get dry. Chewing sugarless gum or sucking hard candy, and drinking plenty of water may help. Contact your doctor if the problem does not go away or is severe. You have been given the following additional information: Syncope, Unk Cause Diabetic Insulin Reaction Dehydration (Adult) Bladder Infection, Female (Adult) Prochlorperazine Maleate Oral tablet (Electronically signed by Sixto Corona Dr. 09/11/2016 10:08)
== END 2016-09-11 01:00 | disposition home or self-care (01) ==
LOC: ED SRH 20:34
DX: E11.649 Type 2 diabetes mellitus with hypoglycemia without coma (principal); R55 Syncope and collapse; E11.22 Type 2 diabetes mellitus with diabetic chronic kidney disease; N18.9 Chronic kidney disease, unspecified; N39.0 Urinary tract infection, site not specified; R31.9 Hematuria, unspecified; E86.0 Dehydration; I48.91 Unspecified atrial fibrillation; R11.0 Nausea; I12.9 Hypertensive chronic kidney disease with stage 1 through stage 4 chronic kidney disease, or unspecified chronic kidney disease
CPT/HCPCS: 90004; 90100; 90469; 90616; 94060; 95059

== ENCOUNTER 2016-09-16 10:04 | Outpatient (CLI) | payer OTHER ==
--- NOTE | 2016-09-16 11:34 | DIAGNOSTIC IMAGING REPORT ---
PROCEDURE: CT ABDOMEN/PELVIS W/O CONTRAST INDICATION: ELEVATED LFT,CAMPBELL TECHNIQUE: Noncontrast axial images were obtained of the entire abdomen and pelvis with sagittal and coronal reformations. COMPARISON: CT of the/pelvis 01/07/2016 FINDINGS: ABDOMEN: Lung base are clear. Heart size is normal. Cholecystectomy. Liver measures 18.6 cm with a normal appearance. Mildly enlarged spleen, 13.4 cm, unchanged. Mild right ureterohydronephrosis without evidence of a distal obstructing calculus. There is a 4 mm bladder calculus. Resolved previously noted right renal staghorn calculus. Previously noted right ureteral double-J stent has been removed. There are several punctate nonobstructing bilateral renal calculi. Normal left ureter. Pancreas and adrenal glands are normal. Mild atherosclerosis of the aorta. Small shotty periaortic lymph nodes. Stool throughout the large bowel. There are two midline fat containing supraumbilical hernias measuring 2 and 5 cm. There is a 3 cm fat-containing umbilical hernia. These are unchanged. PELVIS: Normal appendix. Uterus and adnexa are unremarkable. No inflammatory changes. Resolved ascites. Bones are unremarkable. IMPRESSION: 1. Normal liver and resolved ascites 2. Stable mild splenomegaly 3. Resolved right renal staghorn calculus. There are several punctate nonobstructing bilateral renal calculi. Mild right hydroureteronephrosis with 4 mm bladder calculus suggestive of a recently passed calculus versus distal right ureteral stenosis. 4. Cholecystectomy 5. Stable umbilical and supraumbilical midline ventral hernias 6. Obstipation All CT scans at this facility use dose modulation, iterative reconstruction, and/or weight-based dosing when appropriate to reduce radiation dose to as low as reasonably achievable.
== END 2016-09-16 23:00 ==
LOC: CT SRH 10:04
DX: N20.0 Calculus of kidney (principal); N13.30 Unspecified hydronephrosis; Z90.49 Acquired absence of other specified parts of digestive tract; K43.9 Ventral hernia without obstruction or gangrene; K59.00 Constipation, unspecified

== ENCOUNTER 2016-12-30 08:43 | Outpatient (CLI) | payer OTHER ==
--- NOTE | 2016-12-30 14:04 | DIAGNOSTIC IMAGING REPORT ---
PROCEDURE: US KIDNEY/RENAL COMPLETE INDICATION: Right flank pain. History of kidney stones. TECHNIQUE: Transabdominal scans of the kidneys with calculation of resistive indices. Prevoid and postvoid bladder volumes were obtained. COMPARISON: Comparison is made to CT abdomen and pelvis studies (09/16/2016, 01/07/2016). FINDINGS: RIGHT: Right kidney is of normal size (12.4 cm) with normal cortical thickness (1.4 cm). There is mild dilation of the right renal collecting system (although this has decreased since prior CT study). There are nonobstructing right renal calculi (normal 1.1 cm, lower pole 0.7 cm). Right renal resistive indices are normal (upper pole 0.71, mid pole 0.74, inferior pole 0.55). LEFT: Left kidney is of normal size (13.4 cm) with normal morphology and cortical thickness (14 mm). No evidence of hydronephrosis. Left renal resistive indices are borderline elevated (upper pole 0.71, mid pole 0.80, inferior pole 0.70). BLADDER: There are large prevoid (631 ml) postvoid (134 ml bladder volumes).. Prostate is not clearly visualized IMPRESSION: 1. There is mild dilation of the right renal collecting system. While acute recurrent urinary tract obstruction might be considered, the overall appearance is that of improvement since prior study. 2. There are 1.1 and 0.7 cm nonobstructing calculi in the right kidney. 3. Borderline elevated left renal resistive indices (0.80). Left kidney is otherwise normal. 4. Large prevoid (631 ml) and large postvoid bladder volumes/residual (234 ml). While prostate is not identified, findings suggest chronic bladder outlet obstruction.
--- NOTE | 2016-12-30 14:05 | DIAGNOSTIC IMAGING REPORT ---
PROCEDURE: US ART LOWER EXT WITH HEATHER-B/L INDICATION: Diabetes. Chronic ulcers. TECHNIQUE: Preexercise ABIs were performed. The patient was exercised (toe-ups) and postexercise ABIs were repeated followed by color Doppler duplex imaging of the lower extremities. COMPARISON: None. FINDINGS: RIGHT LOWER EXTREMITY: ABIs: . Size ABIs are normal (posterior tibial 1.0, dorsalis pedis 1.1) and are mildly increased following exercise (posterior tibial 1.2, dorsalis pedis 1.2). VESSELS: There are moderate calcified atheromatous. RIGHT LOWER EXTREMITY PEAK SYSTOLIC VELOCITIES: External iliac: Triphasic 92 cm/second. Common femoral artery: Triphasic 71 cm/second. Profunda femoral artery: Biphasic 60 cm/second. Proximal superficial femoral artery: Triphasic 148 cm/second. Mid superficial femoral artery: Triphasic 71 cm/second. Distal superficial femoral artery: Triphasic 97 cm/second. Popliteal artery: Triphasic 53 cm/second. Proximal posterior tibial artery: Biphasic 54 cm/second. Proximal anterior tibial artery: Biphasic 70 cm/second. Peroneal artery: Biphasic 13 cm/second. Distal posterior tibial artery: Biphasic 32 cm/second. Dorsalis pedis artery: Biphasic 33 cm/second. LEFT LOWER EXTREMITY: ABIs: Pre exercise ABIs are normal (posterior tibial 1.1, dorsalis pedis 1.0) and a mildly increased following exercise (posterior tibial 1.2, dorsalis pedis 1.3). VESSELS: There are moderate calcified atheromatous changes. LEFT LOWER EXTREMITY PEAK SYSTOLIC VELOCITIES: External iliac: Triphasic 115 cm/second. Common femoral artery: Biphasic 79 cm/second. Profunda femoral artery: Biphasic 39 cm/second. Proximal superficial femoral artery: Biphasic 103 cm/second. Mid superficial femoral artery: Biphasic 57 cm/second. Distal superficial femoral artery: Biphasic 112 cm/second. Popliteal artery: Biphasic 38 cm/second. Proximal posterior tibial artery: Triphasic 11 cm/second. Proximal anterior tibial artery: Biphasic 54 cm/second. Peroneal artery: Biphasic 14 cm/second. Distal posterior tibial artery: Biphasic 12 cm/second. Dorsalis pedis artery: Biphasic 23 cm/second. IMPRESSION: 1. Moderate calcified atheromatous change of bilateral lower extremity arterial vascular system. 2. No evidence of significant pre or postexercise large vessel arterial vascular insufficiency.
--- NOTE | 2016-12-30 14:13 | DIAGNOSTIC IMAGING REPORT ---
PROCEDURE: US VENOUS - BILATERAL EXT INDICATION: DIABETIC,CHRONIC ULCER TECHNIQUE: Duplex sonography of the deep venous system in the bilateral lower extremities was performed in the upright and semi-upright position. Compression and augmentation techniques were used. COMPARISON: None. FINDINGS: Right lower extremity: The deep and superficial venous system (greater saphenous vein) of the right lower extremity is normal, and there is no evidence of venous insufficiency. Left lower extremity: There is no evidence of valvular incompetence in the proximal deep venous system of the left lower extremity. However, there is a prominent perforating vessel which extends from the left anterior tibial calf vein (deep system) towards lateral calf wound. There is valvular incompetence in the distal left greater saphenous vein of the superficial venous system (vessel diameter 2 mm, 1.6 seconds). The proximal and mid left greater saphenous vein are normal. IMPRESSION: 1. No evidence of valvular incompetence in the right lower extremity. 2. There is valvular incompetence of the distal left deep system with a prominent perforating vessel extending from the anterior tibial vein towards the lateral calf wound. 3. There is valvular incompetence in the distal left greater saphenous vein (superficial system).
== END 2016-12-30 23:00 ==
LOC: US SRH 08:43
DX: I70.209 Unspecified atherosclerosis of native arteries of extremities, unspecified extremity (principal); I83.92 Asymptomatic varicose veins of left lower extremity; N20.0 Calculus of kidney; Z87.442 Personal history of urinary calculi

== ENCOUNTER 2017-02-10 08:44 | Outpatient (CLI) | payer OTHER ==
--- NOTE | 2017-02-10 10:35 | DIAGNOSTIC IMAGING REPORT ---
PROCEDURE: US ABDOMEN ULTRASOUND-COMPLETE INDICATION: ELEVATED ALKALINE PHOSPHATASE TECHNIQUE: Traylor scale and color Doppler sonographic images of the abdomen were obtained without comparison. COMPARISON: Comparison is made to CT abdomen and pelvis studies (09/16/2016, 01/07/2016 FINDINGS: The liver is enlarged and demonstrates slight increase in echogenicity. The gallbladder is surgically absent. No pericholecystic fluid or Velazco sign. The extrahepatic common duct is normal measuring 5.2 mm The visualized pancreas is normal without ductal dilatation or peripancreatic fluid collection. The abdominal aorta is normal in its course and caliber. The retrohepatic inferior vena cava is patent. There is appropriate hepatopetal flow in the portal vein. The right kidney measures 11.9 cm in length. The left kidney measures 12.3 cm in length. There is mild hydronephrosis on the right. Color Doppler imaging demonstrates normal blood flow in each kidney. The spleen is measuring 18.2 cm in length. There is no perihepatic or perisplenic ascites. IMPRESSION: 1. Hepatomegaly with slight increase in echogenicity consistent with intrinsic liver disease. 2. Stable mild splenomegaly
== END 2017-02-10 23:00 | disposition home or self-care (01) ==
LOC: US SRH 08:44
DX: R16.0 Hepatomegaly, not elsewhere classified (principal)